=== PATIENT | male | born 1995 | race Caucasian/White ===

== ENCOUNTER 2017-09-19 12:55 | Day surgery (SDC) | payer BC ==
[2017-09-19] VITALS (8 sets, daily range): BP systolic 104–120; BP diastolic 45–79; PULSE 49–95; TEMP 97.5–98.4
[~2017-09-19] VITALS: Ht 177.8 cm; Wt 88.4 kg
[2017-09-20 00:04] VITALS: BP 116/48; PULSE 59; TEMP 98.2
[2017-09-20 04:00] VITALS: BP 109/54; PULSE 78; TEMP 98.2
[2017-09-20 08:56] VITALS: BP 99/52; PULSE 56; TEMP 98
== END 2017-09-20 13:03 | disposition home or self-care (01) ==
LOC: SDCO 12:55 → SURG 13:38 → SDCO 09-20 13:03
DX: K35.80 Unspecified acute appendicitis (principal); Z20.89 Contact with and (suspected) exposure to other communicable diseases
CPT/HCPCS: OP; J0330; J1100; J1885; J2270; J2405; J2550; J2704; J2710; J3010; J7120